=== PATIENT | female | born 1955 | race Caucasian/White ===

== ENCOUNTER 2022-12-23 11:22 | Observation (INO) ==
[~2022-12-23 11:22] MED LIST: Buffered Lidocaine 1% SYRIN 1 ml INTRADERM ONE; Famotidine IV 10 MG/ML 2 ml VIAL (20 mg) IV ONE; Lactated Ringers 1000 ml BAG 1,000 ML IV SCH; Tranexamic Acid 1,000 MG/10 ML 1,000 MG in NS 0.9% 50 ML 50 ML IV SCH
[2022-12-23 12:00] LABS: INR 1.14 (0.88-1.18)
[2022-12-23] MEDS ORDERED: ceFAZolin 2 GM PREMIX 2 GM/50 ML BAG ONE (12:20)
[2022-12-23] MEDS ORDERED: Famotidine IV 10 MG/ML 2 ml VIAL (20 mg) ONE (12:20)
[2022-12-23] MEDS ORDERED: Midazolam 2 mg/2 ml VIAL 1 mg/ml 2 ml VIAL (2 mg) ONE (13:05)
[2022-12-23] MEDS ORDERED: fentaNYL 100 mcg/2 ml 50 MCG/ML VIAL ONE ×2 (13:06→17:09)
[2022-12-23] MEDS ORDERED: Rocuronium 50 mg VIAL 10 mg/ml 5 ml VIAL (50 mg) ONE (13:06)
[2022-12-23] MEDS ORDERED: Propofol 10 MG/ML 20 ML BTL ONE (13:06)
[2022-12-23] MEDS ORDERED: Acetaminophen IV 1 GM/100ML 1,000 MG/100 ML BAG IV ONE (14:04)
[2022-12-23] MEDS ORDERED: Ropivacaine 5 MG/ML 20 ML VIAL 0.5% (100 MG) ONE (14:22)
[2022-12-23] MEDS ORDERED: Dexamethasone IV 4 MG/ML VIAL 1 ml VIAL ONE ×2 (15:07)
[2022-12-23] MEDS ORDERED: Ondansetron 4 mg VIAL 2 MG/ML 2 ml VIAL ONE (15:07)
[2022-12-23] MEDS ORDERED: HYDROmorphone 0.5 MG/0.5 ML SYRINGE ONE ×2 (15:08→15:21)
[2022-12-23] MEDS ORDERED: Magnesium Hydroxide LIQ 30 ML UDC PO PRN (15:26)
[2022-12-23] MEDS ORDERED: Lactulose 30 ml UDC PO PRN (15:26)
[2022-12-23] MEDS ORDERED: Ondansetron 4 mg VIAL 2 MG/ML 2 ml VIAL IV PRN (15:26)
[2022-12-23] MEDS ORDERED: Ondansetron ODT 4 mg TAB 4 MG TAB PO PRN (15:26)
[2022-12-23] MEDS ORDERED: Morphine 2 MG/ML SYRINGE IV PRN (15:26)
[2022-12-23] MEDS ORDERED: HYDROmorphone 1 MG/1 ML SYRINGE IV PRN (15:52)
[2022-12-23] MEDS ORDERED: fentaNYL 100 mcg/2 ml 50 MCG/ML VIAL IV PRN (15:52)
[2022-12-23] MEDS ORDERED: Naloxone 0.4 mg VIAL 0.4 mg/ml 1 ml VIAL IV PRN (15:52)
[2022-12-23] MEDS ORDERED: HYDROmorphone 1 MG/1 ML SYRINGE ONE (17:09)
[2022-12-23] MEDS: Lactated Ringers 1000 ml BAG 1,000 ML IV SCH (19:24)
[2022-12-23] MEDS: Magnesium Hydroxide LIQ 30 ML UDC PO SCH (21:17)
[2022-12-23] MEDS: ceFAZolin 1 GM ADVAN 1 GM in NS 0.9% 50 ML 50 ML IVPB SCH (22:35)
[2022-12-24] MEDS: Lactated Ringers 1000 ml BAG 1,000 ML IV SCH (04:59)
[2022-12-24] MEDS: ceFAZolin 1 GM ADVAN 1 GM in NS 0.9% 50 ML 50 ML IVPB SCH ×2 (06:19→14:37)
[2022-12-24 06:33] LABS: Hematocrit 40 % (35-47); Hemoglobin 13.2 g/dL (12.0-16.0)
[2022-12-24 06:46] LABS: Blood Urea Nitrogen 16 mg/dL (6-24); CO2 Carbon Dioxide 23 mmol/L (22-32); Calcium 8.5 mg/dL (8.6-10.3); Chloride 106 mmol/L (101-111); Creatinine, Serum 0.93 mg/dL (0.51-0.95); Glucose 158 mg/dL (70-100); Sodium 138 mmol/L (135-145); eGFR CKD-EPI 67.8 (>60)
[2022-12-24 06:47] LABS: Anion Gap 9 mmol/L (2-11)
[2022-12-24 08:34] LABS: Platelet Count Platelets clumped. 10^3/uL (150-450)
[2022-12-24] MEDS ORDERED: Vitamin THERAPEUTIC TAB PO SCH (09:00)
[2022-12-24] MEDS ORDERED: Cholecalciferol (VIT D3) 1,000 unit TAB PO SCH (09:00)
[2022-12-24] MEDS ORDERED: Fluticasone NASAL SPRAY 50MCG 16 gm SPRAY BTL INTRANASAL SCH (09:00)
[2022-12-24] MEDS: Magnesium Hydroxide LIQ 30 ML UDC PO SCH (10:15)
[2022-12-24 12:12] VITALS: BP 110/59
== END 2022-12-24 15:25 | disposition home or self-care (01) ==
LOC: AA 11:22 → INTOOBSV 11:22 → SSU 18:44
PROVIDERS: ADMIT Orthopaedic Surgery Adult Reconstructive Orthopaedic Surgery; ATTEND Orthopaedic Surgery Adult Reconstructive Orthopaedic Surgery